=== PATIENT | male | born 1935 | race Caucasian/White ===

== ENCOUNTER 2016-10-22 05:43 | Day surgery (SDC) | payer OTHER, MEDICARE ==
[~2016-10-22] VITALS: Ht 180.3 cm; Wt 98.9 kg
[~2016-10-22 05:43] MED LIST: ADULT LOW DOSE81 M1 PO; ALEVE220 M2 PO; ALTACE5 MG PO; ASPIRIN325 MG PO; ASPIRIN81 M1 PO; Aspirin E.C. PO; BAYER W-CALCIU1 EACH PO; CENTRUM SILVER1 EAC3 PO; CRESTOR5 MG PO; KENALOG,ARISTOC80 G1 TP; LITE COAT ASPI325 M1 PO; LORAZEPAM0.5 MG PO; PROTONIX40 MG PO; VITAMIN D-32000 UNI1 PO; VITAMIN D31000 UNI1 PO
[2016-10-22 06:32] VITALS: BP 149/75
[2016-10-22 07:38] LABS: METH RESISTANT S AUREUS PCR NEGATIVE (NEGATIVE)
[2016-10-22 07:40] LABS: PROBE CHECK PASS; SPECIMEN PROCESSING CONTROL PASS
[2016-10-22] MEDS ORDERED: NORCO 5/3251 TABLET PO (10:08)
[2016-10-22 10:54] VITALS: BP 96/56
[2016-10-22 11:44] VITALS: BP 134/73
[2016-10-22 14:05] VITALS: BP 157/78
[2016-10-22 16:57] VITALS: BP 140/79
== END 2016-10-22 17:18 | disposition home or self-care (01) ==
LOC: SDC 05:43
PROVIDERS: Surgery
DX: K43.0 Incisional hernia with obstruction, without gangrene (principal); K66.0 Peritoneal adhesions (postprocedural) (postinfection); I25.10 Atherosclerotic heart disease of native coronary artery without angina pectoris; Z95.5 Presence of coronary angioplasty implant and graft; I25.2 Old myocardial infarction; Z96.652 Presence of left artificial knee joint; Z85.828 Personal history of other malignant neoplasm of skin; E78.5 Hyperlipidemia, unspecified; K21.9 Gastro-esophageal reflux disease without esophagitis; F41.1 Generalized anxiety disorder; Z88.8 Allergy status to other drugs, medicaments and biological substances; Z82.49 Family history of ischemic heart disease and other diseases of the circulatory system; Z80.9 Family history of malignant neoplasm, unspecified
CPT/HCPCS: 87641; J0330; J1100; J2250; J2405; J2710; J3010; S0020

== ENCOUNTER 2016-12-08 10:47 | Day surgery (SDC) | payer OTHER, MEDICARE ==
[~2016-12-08] VITALS: Ht 180.3 cm; Wt 98.9 kg
[~2016-12-08 10:47] MED LIST changes: +NORCO 5/3251 TABLET PO; +RAMIPRIL1.25 MG PO
[2016-12-08 11:34] VITALS: BP 146/90
[2016-12-08] MEDS ORDERED: NORCO 5/3251 TABLET PO (15:26)
[2016-12-08 16:17] VITALS: BP 171/90
[2016-12-08 17:10] VITALS: BP 160/86
[2016-12-08 17:43] VITALS: BP 150/80
[2016-12-08] MEDS ORDERED: NITROSTAT0.4 MG SL (21:06)
[2016-12-08] MEDS ORDERED: LITE COAT ASPI325 M1 PO (21:06)
== END 2016-12-08 17:50 | disposition home or self-care (01) ==
LOC: SDC 10:47
PROC: 0YU50JZ Supplement Right Inguinal Region with Synthetic Substitute, Open Approach (ICD-10-PCS; principal; 2016-12-08)
DX: K40.90 Unilateral inguinal hernia, without obstruction or gangrene, not specified as recurrent (principal); I10 Essential (primary) hypertension; I25.10 Atherosclerotic heart disease of native coronary artery without angina pectoris; Z95.5 Presence of coronary angioplasty implant and graft; I25.2 Old myocardial infarction; Z79.82 Long term (current) use of aspirin; Z85.828 Personal history of other malignant neoplasm of skin; Z88.8 Allergy status to other drugs, medicaments and biological substances; Z82.49 Family history of ischemic heart disease and other diseases of the circulatory system; Z80.9 Family history of malignant neoplasm, unspecified
CPT/HCPCS: C1781; J0690; J2405; S0020

== ENCOUNTER 2016-12-08 19:05 | Observation (INO) | payer OTHER, MEDICARE ==
[~2016-12-08] VITALS: Ht 180.3 cm; Wt 97.3 kg
[2016-12-08 20:04] LABS: HEMATOCRIT 44.4 % (38.0-50.0); MCH 28.6 PG (29.0-34.0); MCHC 32.9 G/DL (30.0-36.0); MCV 86.9 FL (86-99); RBC DIS.WIDTH-CV 13.8 % (11.8-14.6); RBC DIS.WIDTH-SD 44.3 % (39-53); RED BLOOD COUNT 5.11 M/uL (4.00-5.50); WHITE BLOOD COUNT 10.2 K/uL (4.1-10.2)
[2016-12-08 20:11] LABS: CHLORIDE 103 mEq/L (99-109); SODIUM 138 mEq/L (136-147)
[2016-12-08 20:12] LABS: GLUCOSE 98 mg/dL (70-99)
[2016-12-08 20:14] LABS: ANION GAP 11 MEQ/L (2-14)
[2016-12-08 20:16] LABS: GFR ESTIMATE (CALCULATED) > 59 mL/min/
[2016-12-08 20:17] LABS: UREA NITROGEN (BUN) 11 mg/dL (9-23)
[2016-12-08 20:52] LABS: HEMATOLOGY COMMENT 1 SN; PLAT.SUFFICIENCY ADEQUATE; PLATELET COUNT 181 K/uL (156-360)
[2016-12-08] MEDS ORDERED: NITROSTAT0.4 MG SL (21:06)
[2016-12-08] MEDS ORDERED: LITE COAT ASPI325 M1 PO (21:06)
[2016-12-08 21:44] LABS: TROP-I INTERPRETATION NEGATIVE; TROPONIN-I < 0.01 ng/mL (0.0-0.30)
[2016-12-08 23:44] VITALS: BP 143/74
[2016-12-09 04:48] VITALS: BP 130/68
[2016-12-09 06:14] LABS: TROP-I INTERPRETATION NEGATIVE; TROPONIN-I < 0.01 ng/mL (0.0-0.30)
[2016-12-09 06:34] LABS: EOSINOPHIL (%) 0.9 % (0-5); EOSINOPHIL COUNT 0.1 K/uL (0-0.3); HEMATOCRIT 38.5 % (38.0-50.0); IMMATURE GRANULOCYTE (%) 0.3 % (0.0-0.7); INSTRUMENT ABS NEUTROPHIL CT 5.3 K/uL; MCH 29.3 PG (29.0-34.0); MCHC 33.8 G/DL (30.0-36.0); MCV 86.9 FL (86-99); MONOCYTE (%) 7.9 % (3-12); MONOCYTE COUNT 0.6 K/uL (0-0.8); NEUTROPHIL (%) 76.3 % (45-76); NEUTROPHIL COUNT 5.3 K/uL (1.8-6.4); PLATELET COUNT 173 K/uL (156-360); RED BLOOD COUNT 4.43 M/uL (4.00-5.50)
[2016-12-09 06:41] LABS: ALKALINE PHOSPHATASE 35 IU/L (3-129); ANION GAP 7 MEQ/L (2-14); CHLORIDE 100 MEQ/L (99-109); DIRECT BILIRUBIN 0.4 mg/dL (0.0-0.3); GFR ESTIMATE (CALCULATED) > 59 mL/min/; GLUCOSE 113 mg/dL (70-99); SAMPLE HEMOLYSIS CHECK 0; SAMPLE ICTERIC CHECK 0; SAMPLE LIPEMIA CHECK 0; SODIUM 135 MEQ/L (136-147); TOTAL BILIRUBIN 2.2 MG/DL (0.0-1.0); UREA NITROGEN (BUN) 11 mg/dL (9-23)
[2016-12-09 07:53] VITALS: BP 119/62
[2016-12-09 10:18] LABS: TROP-I INTERPRETATION NEGATIVE; TROPONIN-I < 0.01 ng/mL (0.0-0.30)
[2016-12-09 11:47] VITALS: BP 120/61
[2016-12-09 11:49] VITALS: BP 123/67
[2016-12-09 11:51] VITALS: BP 141/67
== END 2016-12-09 14:26 | disposition home or self-care (01) ==
LOC: EME → EDBD 19:05 → EME 19:05 → 5WEST 22:16 → EDOF 22:16 → 5WEST 23:30
PROVIDERS: Emergency Medicine; Internal Medicine
DX: R55 Syncope and collapse (principal); R94.31 Abnormal electrocardiogram [ECG] [EKG]; I25.10 Atherosclerotic heart disease of native coronary artery without angina pectoris; I10 Essential (primary) hypertension; E78.5 Hyperlipidemia, unspecified; Z95.1 Presence of aortocoronary bypass graft; Z95.5 Presence of coronary angioplasty implant and graft; F41.9 Anxiety disorder, unspecified; E78.00 Pure hypercholesterolemia, unspecified; Z87.891 Personal history of nicotine dependence; R15.9 Full incontinence of feces
CPT/HCPCS: 70450; 71020; 80048; 80076; 84484; 85025; 85027; 93005; 99281; 99285; G0378; J1644; J2405; J7030

== ENCOUNTER 2017-11-23 10:02 | Day surgery (SDC) | payer OTHER, MEDICARE ==
[~2017-11-23] VITALS: Ht 180.3 cm; Wt 102.0 kg
[~2017-11-23 10:02] MED LIST changes: +NITROSTAT0.4 MG SL
== END 2017-11-23 18:00 | disposition home or self-care (01) ==
LOC: CATH 10:02
DX: I25.10 Atherosclerotic heart disease of native coronary artery without angina pectoris (principal); I25.82 Chronic total occlusion of coronary artery; I25.810 Atherosclerosis of coronary artery bypass graft(s) without angina pectoris; I49.5 Sick sinus syndrome; I42.0 Dilated cardiomyopathy; I25.5 Ischemic cardiomyopathy; I10 Essential (primary) hypertension; I71.2 Thoracic aortic aneurysm, without rupture; E11.9 Type 2 diabetes mellitus without complications; E78.5 Hyperlipidemia, unspecified; Z79.82 Long term (current) use of aspirin; Z95.1 Presence of aortocoronary bypass graft; Z95.5 Presence of coronary angioplasty implant and graft
CPT/HCPCS: 87641; C1769; C1887; C1894; J0461; J2250; J3010